=== PATIENT | female | born 1995 | race Two or more races ===

== ENCOUNTER 2022-01-04 19:14 | Emergency (ER) | payer MEDICAID, OTHER ==
[~2022-01-04] VITALS: Ht 160 cm; Wt 58.1 kg
[2022-01-04 19:18] VITALS: BP 101/54
[2022-01-04] MEDS ORDERED: ACETAMINOPHEN 500 MG TAB PO ONE ×2 (19:24→19:30)
== END 2022-01-04 23:25 | disposition left against medical advice (07) ==
LOC: ER 19:14
DX: J02.9 Acute pharyngitis, unspecified (principal); Z53.21 Procedure and treatment not carried out due to patient leaving prior to being seen by health care provider

== ENCOUNTER 2022-01-05 07:21 | Emergency (ER) | payer MEDICAID ==
[~2022-01-05] VITALS: Ht 160 cm; Wt 58.1 kg
[2022-01-05 07:22] VITALS: BP 97/65
== END 2022-01-05 08:42 | disposition left against medical advice (07) ==
LOC: ER 07:21
DX: J02.9 Acute pharyngitis, unspecified (principal); H92.02 Otalgia, left ear; Z53.21 Procedure and treatment not carried out due to patient leaving prior to being seen by health care provider